=== PATIENT | male | born 1980 | race Hispanic/Latino ===

== ENCOUNTER 2016-05-16 19:16 | Emergency (ER) | payer OTHER ==
[2016-05-16] MEDS ORDERED: SODIUM CHLORIDE 0.9% 1000ML 1,000 ML IVS PRN (19:20)
[2016-05-16] MEDS ORDERED: SODIUM CHLORIDE 0.9% (FLUSH) 10 ML SYG IV PRN (19:20)
[2016-05-16 19:44] VITALS: O2SAT 98
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
[2016-05-16] MEDS ORDERED: ONDANSETRON INJ 4 MG/2 ML VIAL IV ONE (20:29)
[2016-05-16] MEDS ORDERED: ONDANSETRON INJ 4 MG/2 ML VIAL ONE (20:29)
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
[2016-05-16] MEDS ORDERED: HYDROcodone 5MG/APAP 325MG 1 EA TAB PO ONE (21:31)
[2016-05-16] MEDS ORDERED: SODIUM CHLORIDE 0.9% 1000ML 1,000 ML IVS ONE (21:31)
[2016-05-16] MEDS ORDERED: KETOROLAC TROMETHAMINE INJ 30 MG/ML VIAL IV ONE (21:31)
[2016-05-16] MEDS ORDERED: HYDROCOD/APAP 10/325 (ER DISP) # 3 tablets PO ONE (23:22)
[2016-05-17 01:02] VITALS: BP 136/78; TEMP 97.8
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
== END 2016-05-16 23:35 | disposition home or self-care (01) ==
LOC: ER 19:16
DX: S06.0X0A Concussion without loss of consciousness, initial encounter (principal); G45.4 Transient global amnesia; M25.562 Pain in left knee; V47.6XXA Car passenger injured in collision with fixed or stationary object in traffic accident, initial encounter; Y92.410 Unspecified street and highway as the place of occurrence of the external cause
CPT/HCPCS: 70450; 71260; 72125; 73560; 74177; 80053; 80320; 81001; 82150; 85025; 85610; 85730; 93005; 94760; J1885; J2405; J7030